=== PATIENT | female | born 1995 | race Caucasian/White ===

== ENCOUNTER 2020-02-24 10:40 | Inpatient (IN) | payer OTHER ==
[~2020-02-24] VITALS: Ht 154.9 cm; Wt 74.4 kg
[2020-02-24] MEDS ORDERED: LR 1,000 ML IV SCH (11:06)
[2020-02-24] MEDS ORDERED: LR 1,000 ML IV ONE (11:06)
[2020-02-24] MEDS ORDERED: OXYTOCIN/0.9 % SODIUM CHLORIDE 1,000 ML IV SCH (11:06)
[2020-02-24] MEDS ORDERED: TERBUTALINE SULFATE 1 MG/ML VIAL SUBCUT ONE (11:15)
[2020-02-24 11:41] LABS: BASOPHILS % (AUTO) 0.7 % (0.0-2.0); EOSINOPHILS # (AUTO) 0.1 K/uL (0.0-0.4); EOSINOPHILS % (AUTO) 1.2 % (0.0-4.0); HEMATOCRIT 37.4 % (36-48); HEMOGLOBIN 12.8 g/dL (12.0-16.0); LYMPHOCYTES # (AUTO) 1.7 K/uL (1.0-5.5); LYMPHOCYTES % (AUTO) 29.6 % (20.5-51.5); MEAN CORPUSCULAR HEMOGLOBIN 29 pg (27-31); MEAN CORPUSCULAR HGB CONC 34 % (32-36); MEAN CORPUSCULAR VOLUME 85 fL (79.0-98.0); MONOCYTES # (AUTO) 0.6 K/uL (0.0-1.0); MONOCYTES % (AUTO) 10.4 % (1.7-9.3); NEUTROPHILS # (AUTO) 3.4 K/uL (1.8-7.7); NEUTROPHILS % (AUTO) 58.1 % (40.0-70.0); PLATELET COUNT (AUTO) 179 K/uL (130-430); RED BLOOD CELL COUNT(AUTO) 4.41 MIL/uL (4.2-6.2); RED CELL DISTRIBUTION WIDTH 15.7 % (9.0-15.0); WHITE BLOOD COUNT (AUTO) 5.9 K/uL (4.8-10.8)
[2020-02-24] MEDS ORDERED: AMPICILLIN SODIUM 2 GM in NS 100 ML IV ONE (12:30)
[2020-02-24] MEDS ORDERED: ROPIVACAINE HCL/PF 0.2% 200 ML ONE (13:56)
[2020-02-24] MEDS ORDERED: fentaNYL CITRATE/PF 100 MCG/2 ML AMP ONE (13:56)
[2020-02-24] MEDS ORDERED: BUPIVACAINE /PF 0.25% 30 ML VIAL INJ ONE (16:11)
[2020-02-24] MEDS: MAG-AL HYDROX/SIMETH 30 ML UDC PO PRN ×2 (16:30→22:31)
[2020-02-24] MEDS: AMPICILLIN SODIUM 1 GM in NS 50 ML IV SCH ×2 (16:47→21:00)
[2020-02-24] MEDS ORDERED: ACETAMINOPHEN 325 MG TABLET PO PRN (17:00)
[2020-02-24] MEDS ORDERED: ACETAMINOPHEN 325 MG TABLET ONE (17:18)
[2020-02-24 18:53] VITALS: BP_SYST 121
[2020-02-25] MEDS ORDERED: ROPIVACAINE HCL/PF 0.2% 200 ML ONE (03:04)
[2020-02-25] MEDS ORDERED: OXYTOCIN/0.9 % SODIUM CHLORIDE 1,000 ML IV ONE (03:21)
[2020-02-25] MEDS ORDERED: OXYCODONE/ACETAMINOPHEN 5-325 TABLET PO PRN (03:30)
[2020-02-25] MEDS ORDERED: METHYLERGONOVINE MALEATE 0.2 MG TABLET PO PRN (03:30)
[2020-02-25] MEDS ORDERED: LANOLIN 7 GM OINT. TP PRN (03:30)
[2020-02-25] MEDS ORDERED: ANUSOL 1 EA SUPP.RECT (PREPARATION H) RC PRN (03:30)
[2020-02-25] MEDS ORDERED: WITCH HAZEL LEAF 1 MED.PAD MED.PAD TP PRN (03:30)
[2020-02-25] MEDS ORDERED: DIPH-TET-PERTUS Vaccine 0.5 ML VIAL (ADACEL) I.M. PRN (03:30)
[2020-02-25] MEDS ORDERED: DERMOPLAST SPRAY TP PRN (03:30)
[2020-02-25] MEDS ORDERED: SENNOSIDES/DOCUSATE SODIUM 1 TAB TABLET(SENOKOT-S) PO PRN (03:30)
[2020-02-25] MEDS ORDERED: HYDROCORTISONE 0.5%, 28.35 GM TOPICAL CREAM TP PRN (03:30)
[2020-02-25] MEDS ORDERED: METHYLERGONOVINE MALEATE 0.2 MG/ML AMP ONE (03:36)
[2020-02-25] MEDS ORDERED: MISOPROSTOL 100 MCG TABLET (CYTOTEC) ONE (03:42)
[2020-02-25] MEDS ORDERED: ONDANSETRON HCL 4 MG/2 ML VIAL ONE (04:29)
[2020-02-25] MEDS ORDERED: MORPHINE SULFATE 10 MG/ML VIAL ONE (04:33)
[2020-02-25] MEDS: IBUPROFEN 800 MG TABLET PO PRN ×3 (07:18→18:12)
[2020-02-25] MEDS: OXYCODONE/ACETAMINOPHEN 5-325 TABLET PO PRN ×2 (09:24→16:39)
[2020-02-25] MEDS: DOCUSATE SODIUM 100 MG CAPSULE PO PRN ×2 (09:25→23:18)
[2020-02-25] MEDS ORDERED: TEMAZEPAM 15 MG CAPSULE PO PRN (21:00)
[2020-02-26] MEDS: IBUPROFEN 800 MG TABLET PO PRN (02:58)
[2020-02-26] MEDS: OXYCODONE/ACETAMINOPHEN 5-325 TABLET PO PRN ×3 (02:59→16:05)
[2020-02-26] MEDS: DOCUSATE SODIUM 100 MG CAPSULE PO PRN (06:05)
[2020-02-26 07:33] LABS: HEMATOCRIT 27.8 % (36-48); HEMOGLOBIN 9.2 g/dL (12.0-16.0)
[2020-02-26] MEDS ORDERED: FENT2mCg/mL-ROPIVA0.2%/NS EPID 150 ML EP SCH (09:45)
[2020-02-26] MEDS ORDERED: MORPHINE SULFATE 10 MG/ML VIAL IVP ONE (09:45)
== END 2020-02-26 17:15 | disposition home or self-care (01) | DRG 807 ==
LOC: SPU 10:40 → OBSVTOIN 11:09
PROVIDERS: ADMIT Obstetrics & Gynecology; ATTEND Obstetrics & Gynecology
PROC: 10D07Z6 Extraction of Products of Conception, Vacuum, Via Natural or Artificial Opening (ICD-10-PCS; principal; 2020-02-25)
PROC: 3E0R3BZ Introduction of Anesthetic Agent into Spinal Canal, Percutaneous Approach (ICD-10-PCS; 2020-02-25)
PROC: 00HU33Z Insertion of Infusion Device into Spinal Canal, Percutaneous Approach (ICD-10-PCS; 2020-02-25)
DX: O80 Encounter for full-term uncomplicated delivery (principal); Z37.0 Single live birth; Z20.828 Contact with and (suspected) exposure to other viral communicable diseases; Z3A.39 39 weeks gestation of pregnancy
CPT/HCPCS: 36415; 85018-TC; 85025; 86592; 86886; 86900; 86901; G0378; J0290; J2210; J2270; J2405; J2590; J3010; J3490; J7120